=== PATIENT | female | born 1985 | race Caucasian/White ===

== ENCOUNTER 2016-04-12 19:27 | Emergency (ER) | payer OTHER ==
[~2016-04-12] VITALS: Ht 167.6 cm; Wt 56.9 kg
[~2016-04-12 19:27] MED LIST: ABILIFY10 MG PO; AMBIEN10 MG PO; CIPRODEX OTIC7.5 ML RIGHT EAR; CLEOCIN300 MG PO; CYMBALTA60 MG PO; ERYTHROMYCIN O3.5 GM LEFT EYE; FLOXIN OTIC SOLN5 ML RIGHT EAR; KLONOPIN0.5 M1 PO; MAALOX MAXIMUM355 ML PO; MOTRIN600 MG PO; PEPCID20 MG PO; TRILEPTAL600 MG PO; VICODIN 5-3001 EACH PO; VOLTAREN75 MG PO; ZOLOFT100 MG PO
[2016-04-12] MEDS ORDERED: SERTRALINE HCL50 MG PO (21:29)
[2016-04-12] MEDS ORDERED: PROMETHAZINE HC25 M1 PO (21:30)
[2016-04-12] MEDS ORDERED: NAPROXEN SODIU550 MG PO (21:30)
[2016-04-12] MEDS ORDERED: AMITRIPTYLINE H10 MG PO (21:30)
[2016-04-12] MEDS ORDERED: MOBIC15 MG PO (21:31)
[2016-04-12] MEDS ORDERED: PERCOCET 5/31 TABLET PO (23:03)
[2016-04-12] MEDS ORDERED: FLEXERIL10 MG PO (23:03)
[2016-04-12] MEDS ORDERED: MEDROL DOSEPAK4 MG PO (23:03)
[2016-04-12 23:10] VITALS: BP 132/63
== END 2016-04-12 23:11 | disposition home or self-care (01) ==
LOC: EME 19:27 → EXP 19:27
DX: M54.12 Radiculopathy, cervical region (principal)
CPT/HCPCS: 72040; 99281; 99284

== ENCOUNTER 2016-09-23 21:40 | Emergency (ER) | payer OTHER ==
[~2016-09-23] VITALS: Ht 170.2 cm; Wt 57.2 kg
[~2016-09-23 21:40] MED LIST changes: +AMITRIPTYLINE H10 MG PO; +FLEXERIL10 MG PO; +MEDROL DOSEPAK4 MG PO; +MOBIC15 MG PO; +NAPROXEN SODIU550 MG PO; +PERCOCET 5/31 TABLET PO; +PROMETHAZINE HC25 M1 PO; +SERTRALINE HCL50 MG PO
[2016-09-23 21:57] VITALS: BP 147/100
[2016-09-24] MEDS ORDERED: ATARAX,VISTARIL25 MG PO (02:31)
== END 2016-09-24 | disposition left against medical advice (07) ==
LOC: EME 21:40
DX: F32.9 Major depressive disorder, single episode, unspecified (principal); R45.1 Restlessness and agitation; Z91.14 Patient's other noncompliance with medication regimen; F17.200 Nicotine dependence, unspecified, uncomplicated
CPT/HCPCS: 80048; 84702; 85027; 99281; 99284; G0480

== ENCOUNTER 2016-09-24 00:22 | Emergency (ER) | payer OTHER ==
[~2016-09-24] VITALS: Ht 170.2 cm; Wt 57.1 kg
[2016-09-24 00:56] LABS: HEMATOCRIT 40.4 % (36.0-46.0); MCH 30.2 PG (29.0-34.0); MCHC 34.2 G/DL (30.0-36.0); MCV 88.4 FL (83-99); MEAN PLAT.VOLUME 10.5 uM^3 (9.5-12.4); PLATELET COUNT 279 K/uL (156-360); RBC DIS.WIDTH-CV 11.9 % (11.8-14.6); RBC DIS.WIDTH-SD 38.4 % (39-53); RED BLOOD COUNT 4.57 M/uL (3.80-5.20); WHITE BLOOD COUNT 6.6 K/uL (4.1-10.2)
[2016-09-24 01:05] LABS: CHLORIDE 106 mEq/L (99-109); POTASSIUM 3.4 mEq/L (3.7-5.4); SODIUM 141 mEq/L (136-147)
[2016-09-24 01:07] LABS: GLUCOSE 88 mg/dL (70-99)
[2016-09-24 01:08] LABS: ANION GAP 10 MEQ/L (2-14)
[2016-09-24 01:10] LABS: SERUM ETHYL ALCOHOL < 10 mg/dL
[2016-09-24 01:11] LABS: GFR ESTIMATE (CALCULATED) > 59 mL/min/
[2016-09-24 01:12] LABS: UREA NITROGEN (BUN) 13 mg/dL (9-23)
[2016-09-24 01:18] LABS: QUANTITATIVE HCG < 4.0 MIU/ML
[2016-09-24 02:06] LABS: ADD MEDTOX COMMENT Y; AMPHETAMINE NEGATIVE (500 ng/mL); BARBITURATES NEGATIVE (200 ng/mL); BENZODIAZEPINES NEGATIVE (150 ng/mL); COCAINE NEGATIVE (150 ng/mL); INTERNAL CONTROLS VALID? YES; METHADONE NEGATIVE (200 ng/mL); METHAMPHETAMINE NEGATIVE (500 ng/mL); OPIATES (MORPHINE) NEGATIVE (100 ng/mL); OXYCODONE PRESUMPTIVE POSITIVE (100 ng/mL); PHENCYCLIDINE NEGATIVE (25 ng/mL); PROPOXYPHENE NEGATIVE (300 ng/mL); THC CANNABINOIDS PRESUMPTIVE POSITIVE (50 ng/mL); TRICYCLIC ANTIDEPRESSANTS NEGATIVE (300 ng/mL)
[2016-09-24] MEDS ORDERED: ATARAX,VISTARIL25 MG PO (02:31)
[2016-09-24 02:43] VITALS: BP 128/95
== END 2016-09-24 02:47 | disposition home or self-care (01) ==
LOC: EME 00:22
PROVIDERS: Emergency Medicine
DX: F32.9 Major depressive disorder, single episode, unspecified (principal); F41.9 Anxiety disorder, unspecified; R45.1 Restlessness and agitation; F17.200 Nicotine dependence, unspecified, uncomplicated
CPT/HCPCS: 80048; 84702; 84999; 85027; 90839; 99281; 99283; G0480

== ENCOUNTER 2016-10-31 00:09 | Emergency (ER) | payer OTHER ==
[~2016-10-31] VITALS: Ht 170.2 cm; Wt 59.3 kg
[~2016-10-31 00:09] MED LIST changes: +ATARAX,VISTARIL25 MG PO
[2016-10-31 04:49] VITALS: BP 132/68
== END 2016-10-31 04:50 | disposition home or self-care (01) ==
LOC: EXP 00:09 → EME 00:09 → EXP 04:50
DX: R51 Headache (principal); K21.9 Gastro-esophageal reflux disease without esophagitis; F17.200 Nicotine dependence, unspecified, uncomplicated
CPT/HCPCS: 99281; 99284; J1200; J1885; J2765; J7030

== ENCOUNTER 2016-12-03 17:21 | Emergency (ER) | payer OTHER ==
[~2016-12-03] VITALS: Ht 170.2 cm; Wt 57.9 kg
[2016-12-03] MEDS ORDERED: TRAMADOL HCL50 MG PO (19:17)
[2016-12-03] MEDS ORDERED: MOTRIN800 MG PO (19:17)
[2016-12-03] MEDS ORDERED: AMOXICILLIN875 MG PO (19:17)
[2016-12-03 19:32] VITALS: BP 132/105
[2016-12-07] MEDS ORDERED: NAPROSYN500 MG PO (15:31)
[2016-12-07] MEDS ORDERED: PERIDEX473 ML MM (15:31)
[2016-12-07] MEDS ORDERED: CLEOCIN300 MG PO (15:31)
== END 2016-12-03 19:33 | disposition home or self-care (01) ==
LOC: EME 17:21
DX: K08.89 Other specified disorders of teeth and supporting structures (principal); F17.200 Nicotine dependence, unspecified, uncomplicated
CPT/HCPCS: 99281; 99283

== ENCOUNTER 2016-12-27 01:52 | Emergency (ER) | payer OTHER ==
[~2016-12-27] VITALS: Ht 170.2 cm; Wt 59.4 kg
[~2016-12-27 01:52] MED LIST changes: +AMOXICILLIN875 MG PO; +MOTRIN800 MG PO; +NAPROSYN500 MG PO; +PERIDEX473 ML MM; +TRAMADOL HCL50 MG PO
[2016-12-27] MEDS ORDERED: MOTRIN600 MG PO (03:35)
[2016-12-27] MEDS ORDERED: AUGMENTIN875 MG PO (03:35)
[2016-12-27] MEDS ORDERED: TYLENOL WITH C1 EACH PO (03:35)
[2016-12-27 03:52] VITALS: BP 132/66
== END 2016-12-27 03:53 | disposition home or self-care (01) ==
LOC: EME 01:52
PROC: 0C9XXZ0 Drainage of Lower Tooth, External Approach, Single (ICD-10-PCS; principal; 2016-12-27)
DX: K04.7 Periapical abscess without sinus (principal); F17.200 Nicotine dependence, unspecified, uncomplicated; F32.9 Major depressive disorder, single episode, unspecified
CPT/HCPCS: 99281; 99283